=== PATIENT | female | born 1995 | race Caucasian/White ===

== ENCOUNTER 2019-04-22 17:11 | Emergency (ER) | payer SELFPAY ==
--- NOTE | 2019-04-22 18:27 | RAD ---
CHEST ONE VIEW: RIGHT RIBS TWO VIEWS: HISTORY: Cough for one month. The patient now has right-sided chest pain. FINDINGS: The cardiac silhouette and pulmonary vasculature are within normal limits. The lungs are clear. No pn eumothorax or pleural effusion is seen. No right-sided rib fracture is identified. The osseous struct ures have a normal appearance. There is incomplete visualization of a metallic density overlying the mid abdomen, which may represent overlying artifact and possibly relate to external jewelry but clini wes correlation is suggested. IMPRESSION: 1. No acute cardiopulmonary process. 2. No right-sided rib fracture is appreciated. 3. Metallic density overlying the abdomen, probably related to overlying artifact but clinical correl ation is recommended. POS: OFF
[2019-04-22 19:12] LABS: #Basophils 0.1 thou/uL (0.0-0.2); #Eosinphils 0.2 thou/uL (0.0-0.7); #Monocytes 1.3 thou/uL (0.11-0.59); #Neutrophils 5.8 thou/uL (1.40-6.50); %Basophils 1.3 % (0.0-1.0); %Eosinophils 2.1 % (0.0-10.0); %Lymphocytes 21.8 % (21.0-51.0); %Monocytes 13.4 % (0.0-10.0); %Neutrophils 61.5 % (42.0-75.0); Hemoglobin 14.1 g/dL (12.0-16.0); Mean Corpuscular HGB CONC 33.5 g/dL (32.0-36.0); Mean Corpuscular Hemoglobin 31.5 pg (27.0-31.0); Mean Corpuscular Volume 93.9 fL (78.0-98.0); Platelet Count 329 thou/uL (130-400); RBC Distribution Width 11.5 % (11.5-14.5); Red Blood Cell (RBC) Count 4.47 mill/uL (4.20-5.40); White Blood Cell (WBC) Count 9.4 thou/uL (4.8-10.8)
[2019-04-22 19:28] LABS: Pregnancy Test - Urine (BHCG) Negative (Negative); Pregu Control Background? CLEAR/WHITE (CLR/WHITE); Pregu Control Bar Appear? YES (CONTROL BAR); Specific Gravity 1.027 (1.002-1.036)
[2019-04-22 19:32] LABS: ALT (SGPT) 11 U/L (8-55); AST (SGOT) 13 U/L (5-34); Albumin 4.3 g/dL (3.5-5.0); Alkaline Phosphatase 63 U/L (40-110); Anion Gap 11 mmol/L (10-20); BUN (Urea Nitrogen) 10 mg/dL (7.0-18.7); Bilirubin, Total 0.3 mg/dL (0.2-1.2); Calc. Creatinine Clearance 0 mL/min (70-130); Carbon Dioxide 27 mmol/L (22-29); Chloride 106 mmol/L (98-107); Estimated GFR-MDRD 87; Globulin 2.5 g/dL (2.4-3.5); Glucose 84 mg/dL (70-105); Potassium 4.3 mmol/L (3.5-5.1); Protein, Total 6.8 g/dL (6.0-8.3); Sodium 140 mmol/L (136-145)
[2019-04-22] MEDS ORDERED: Acetaminophen 500 MG TAB ONE (20:01)
== END 2019-04-22 20:08 | disposition home or self-care (01) ==
LOC: ERS 17:11
DX: S29.011A Strain of muscle and tendon of front wall of thorax, initial encounter (principal); F17.210 Nicotine dependence, cigarettes, uncomplicated; Z71.6 Tobacco abuse counseling; X58.XXXA Exposure to other specified factors, initial encounter
CPT/HCPCS: 36415; 80053; 81025; 85025; 85379; 93005; 99406